=== PATIENT | female | born 1960 | race Caucasian/White ===

== ENCOUNTER → 2017-10-10 | Outpatient (CLI) | payer BC ==
[~2017-10-10] MED LIST: LISI10TA PO; OXYC-57 PO
--- NOTE | 2017-10-11 14:27 | MAMMOGRAPHY REPORT ---
BILATERAL DIGITAL SCREENING MAMMOGRAM TOMOSYNTHESIS WITH CAD: 10/10/2017 CLINICAL HISTORY: Routine screening examination. TECHNIQUE: Breast tomosynthesis in addition to standard 2D mammography was performed. Current study was also evaluated with a Computer Aided Detection (CAD) system. COMPARISON: Comparison is made to exams dated: 10/06/2016 mammogram, 10/01/2015 mammogram, 02/26/2014 mammogram, 09/15/2012 mammogram, 09/17/2011 mammogram, and 03/17/2011 ultrasound - [facility]. BREAST COMPOSITION: There are scattered areas of fibroglandular density in both breasts. FINDINGS: There is a possible small area of architectural distortion in the middle one third of the left breast, along the posterior nipple line on the MLO view but not definitely seen on the CC view. Additional spot compression tomosynthesis views and possible ultrasound are recommended. A tiny grouping of punctate microcalcifications in the upper outer posterior right breast is stable o n all available prior mammograms dating back to at least 09/02/2009, therefore likely benign. There are minimal vascular calcifications in the breasts. No other suspicious mass, architectural distortio n or cluster of microcalcifications is seen. IMPRESSION: ACR BI-RADS CATEGORY 0: INCOMPLETE EVALUATION: NEED ADDITIONAL IMAGING EVALUATION The possible small area of architectural distortion in the middle one third of the left breast needs additional evaluation. The patient will be called to schedule an appointment. Approximately 10% of breast cancers are not detected with mammography. A negative mammographic report should not delay biopsy if a clinically suggestive mass is present. Neli Gonzalez M.D. ay/:10/10/2017 16:14:07 [employer]: Yessica ROCHA(R)(M), [facility] letter sent: Addl Imaging 0 BI-RADS Code: ACR BI-RADS Category 0: Incomplete Evaluation: Need Additional Imaging Evaluation
== END | disposition home or self-care (01) ==
LOC: C.MAMM 15:33
PROVIDERS: ATTEND Physician Assistant
DX: Z12.31 Encounter for screening mammogram for malignant neoplasm of breast (principal); R92.8 Other abnormal and inconclusive findings on diagnostic imaging of breast

== ENCOUNTER → 2017-10-14 | Outpatient (CLI) | payer BC ==
--- NOTE | 2017-10-14 13:38 | MAMMOGRAPHY REPORT ---
UNILATERAL LEFT DIGITAL DIAGNOSTIC MAMMOGRAM TOMOSYNTHESIS: 10/14/2017 CLINICAL HISTORY: Callback from screening mammogram for possible left breast architectural distortion . TECHNIQUE: Breast tomosynthesis in addition to standard 2D mammography was performed. Spot compress ion left CC and MLO 2-D and tomosynthesis images were obtained. COMPARISON: Comparison is made to exams dated: 10/10/2017 mammogram, 10/06/2016 mammogram, 10/01/2015 mammogram, 02/26/2014 mammogram, 09/15/2012 mammogram, and 09/17/2011 mammogram - [facility]. BREAST COMPOSITION: There are scattered areas of fibroglandular density in the left breast. FINDINGS: The previously described possible area of architectural distortion seen within the left sup erior breast on the MLO view does not persist on the additional spot compression views. Normal fibro glandular tissue is seen in this region on the additional views, without suspicious mass, architectur al distortion, or other suspicious finding seen on the additional tomosynthesis images. The parenchy mal pattern in this region also appears similar on 2-D views compared to all available prior mammogra ms dating back to at least 2008. IMPRESSION: ACR BI-RADS CATEGORY 2: BENIGN No persistent architectural distortion seen within the left breast on the additional views. Findings are benign and compatible with normal fibroglandular tissue. There is no mammographic evidence of m alignancy. A 1 year screening mammogram is recommended. The patient has been verbally notified of th e results. Approximately 10% of breast cancers are not detected with mammography. A negative mammographic report should not delay biopsy if a clinically suggestive mass is present. Kourtney Iyer M.D. /:10/14/2017 11:39:34 [employer] Worker: Malini Emerson, [facility] letter sent: Normal 1/2 BI-RADS Code: ACR BI-RADS Category 2: Benign
== END | disposition home or self-care (01) ==
LOC: C.MAMM 11:02
PROVIDERS: ATTEND Physician Assistant
DX: N64.89 Other specified disorders of breast (principal)